=== PATIENT | female | born 1950 | race Caucasian/White ===

== ENCOUNTER 2016-04-12 11:26 | Emergency (ER) | payer MEDICARE, BC ==
[~2016-04-12] VITALS: Ht 154.9 cm; Wt 63.0 kg
[2016-04-12 11:30] VITALS: Ht 154.9 cm; Wt 63.0 kg
--- NOTE | 2016-04-12 13:35 | ERD ---
ER Documentation Chief Complaint Date/Time DATE: 04/12/16 TIME: 13:31 Chief Complaint pt bib family with c/o mech fall x 1 hr ago, left wrist and right knee pain HPI This is a 65-year-old feel who presents to the emergency department today complaining of some left wrist pain, knee pain and hand pain after tripping and falling on the sidewalk earlier today. Patient is here with her son. Patient has a history of shoulder fracture in her left arm with a reverse arthroplasty. Denies any fevers or chills. Denies hitting her head or loss of consciousness. ROS All systems reviewed and are negative except as per history of present illness. Medications Home Meds Active Scripts Neomycin Davis/Bacitrac Zn/Poly (Triple Antibiotic Ointment) 1 Each Oint.pack, 1 EACH TP BID for 7 Days Prov:ALBERTO MENCHACA PA-C 04/12/16 Ibuprofen* (Motrin*) 600 Mg Tab, 600 MG PO Q6, #30 TAB Prov:ALBERTO MENCHACA PA-C 04/12/16 Acetaminophen* (Tylophen*) 500 Mg Capsule, 1 CAP PO Q6H Y for PAIN AND OR ELEVATED TEMP, #30 CAP Prov:ALBERTO MENCHACA PA-C 04/12/16 Allergies Allergies: Coded Allergies: No Known Drug Allergies (Verified Allergy, Unknown, 03/16/14) PMhx/Soc History of Surgery: Yes (LEFT SHOULDER SURGERY, TUBAL REMOVAL) Anesthesia Reaction: No Hx Neurological Disorder: No Hx Respiratory Disorders: No Hx Cardiac Disorders: No Hx Psychiatric Problems: No Hx Miscellaneous Medical Probl: Yes (LUPUS) Hx Alcohol Use: No Hx Substance Use: No Hx Tobacco Use: No (QUIT 2015) Smoking Status: Former smoker Physical Exam Vitals Vital Signs Date Time Temp Pulse Resp B/P Pulse Ox O2 Delivery O2 Flow Rate FiO2 04/12/16 11:30 97.3 69 16 177/76 98 Physical Exam Const: No acute distress pleasant Head: Atraumatic Eyes: Normal Conjunctiva ENT: Normal External Ears, Nose and Mouth. Neck: Full range of motion..~ No meningismus. Resp: Clear to auscultation bilaterally. No absent breath sounds. No abrasions. Nontender to palpation with compression. Cardio: Regular rate and rhythm, no murmurs Abd: Soft, non tender, non distended. Normal bowel sounds Skin: Abrasion right knee and right hand Back: No midline or flank tenderness MSK: left forearm and wrist with no obvious deformity. No effusion. No ecchymosis. Unable to assess range of motion at wrist secondary to pain. Full active range of motion of elbow pulses 2+. Distal neurovascularly intact. Right knee with abrasion. Right hand with abrasion. Nontender scaphoid. Nontender palmar aspect. Full active range of motion. Nontender to palpation. Neur: Awake and alert Psych: Normal Mood and Affect Results 24 hrs Patient: ASIM WHITE : 1950 Age: 65 Sex: F MR #: [id number] DOS: 04/12/16 0000 Ordering MD: ALBERTO MENCHACA PA-C Location: [facility] Room/Bed: PROCEDURE: XR left wrist. CLINICAL INDICATION: Wrist pain /injury TECHNIQUE: Three views are available for review. COMPARISON: No prior studies are available for comparison. FINDINGS: The osseous structures are normal in mineralization, architecture and alignment. No fracture or osseous lesion is identified. The joints are unremarkable. The soft tissues are unremarkable. IMPRESSION: Unremarkable examination. RPTAT: HGDB .Francis Anderson MD, MD Date Time Electronically viewed and signed by .Francis Anderson MD, on 04/12/2016 13:49 .B/ CC: ALBERTO MENCHACA PA-C DIAGNOSTIC IMAGING REPORT Patient: ASIM WHITE : 1950 Age: 65 Sex: F MR #: [id number] DOS: 04/12/16 0000 Ordering MD: ALBERTO MENCHACA PA-C Location: [facility] Room/Bed: PROCEDURE: XR left forearm. CLINICAL INDICATION: Pain. /injury TECHNIQUE: AP and lateral views of the forearm were obtained. COMPARISON: No prior studies are available for comparison. FINDINGS: There is normal mineralization and alignment. No fracture or osseous lesion is identified. The joints are unremarkable. The soft tissues are unremarkable. IMPRESSION: Unremarkable examination. RPTAT: HGDB .Francis Anderson MD, MD Date Time Electronically viewed and signed by .Francis Anderson MD, MD on 04/12/2016 13:50 .B/ CC: ALBERTO MENCHACA PA-C Procedures/MDM This a 65-year-old female who presents to the emergency department today with abrasions and left forearm pain after sustaining a mechanical fall earlier today. I did offer to obtain multiple images for the patient however patient was only concerned about her wrist. A wrist and forearm x-ray was ordered. Patient declined images of her right knee and right hand. Patient had initially complained of some rib pain on her right side per the report of the son however patient stated that the pain had gone away and she did not want a chest x-ray or dedicated rib series. Per the radiology report images of the left forearm and left wrist are unremarkable. There is no acute fracture or dislocation. Joints are unremarkable. Soft tissues are unremarkable. Low suspicion for scaphoid fracture Patient symptoms at this time most consistent with sprain versus strain versus contusion. Patient declined any pain medication here in the emergency department. She was given Tylenol and Motrin for home as well as triple antibiotic ointment for her abrasions. She was also given a sling for her arm as well as a Velcro wrist splint. At this time the patient is stable for discharge and outpatient management. Patient should follow up with their PCP in the next 1-2 days. They may return to the emergency department sooner for any persistent or worsening of symptoms. Patient understood and agreed with the plan. Departure Diagnosis: Primary Impression: Fall Encounter type: initial encounter Qualified Code: W19.XXXA - Fall, initial encounter Additional Impression: Wrist pain, acute Laterality: left Qualified Code: M25.532 - Wrist pain, acute, left Condition: Fair ALBERTO MENCHACA PA-C Apr 12, 2016 13:35
--- NOTE | 2016-04-12 13:50 | RADRPT ---
PROCEDURE: XR left forearm. CLINICAL INDICATION: Pain. /injury TECHNIQUE: AP and lateral views of the forearm were obtained. COMPARISON: No prior studies are available for comparison. FINDINGS: There is normal mineralization and alignment. No fracture or osseous lesion is identified. The joint s are unremarkable. The soft tissues are unremarkable. IMPRESSION: Unremarkable examination. RPTAT: HGDB .Francis Anderson MD, MD Date Time Electronically viewed and signed by .Francis Anderson MD, on 04/12/2016 13:50 .B/
--- NOTE | 2016-04-12 13:50 | RADRPT ---
PROCEDURE: XR left wrist. CLINICAL INDICATION: Wrist pain /injury TECHNIQUE: Three views are available for review. COMPARISON: No prior studies are available for comparison. FINDINGS: The osseous structures are normal in mineralization, architecture and alignment. No fracture or oss eous lesion is identified. The joints are unremarkable. The soft tissues are unremarkable. IMPRESSION: Unremarkable examination. RPTAT: HGDB .Francis Anderson MD, MD Date Time Electronically viewed and signed by .Francis Anderson MD, on 04/12/2016 13:49 .B/
[2016-04-12] MEDS ORDERED: NEOM1PAC TP (14:19)
[2016-04-12] MEDS ORDERED: ACET500C5 PO (14:19)
[2016-04-12] MEDS ORDERED: IBUP-1542 PO (14:19)
== END 2016-04-12 14:36 | disposition home or self-care (01) ==
LOC: FTE 11:26
DX: S80.211A Abrasion, right knee, initial encounter (principal); S60.511A Abrasion of right hand, initial encounter; W01.0XXA Fall on same level from slipping, tripping and stumbling without subsequent striking against object, initial encounter; Y92.480 Sidewalk as the place of occurrence of the external cause; Z87.891 Personal history of nicotine dependence
CPT/HCPCS: 73090